=== PATIENT | female | born 1950 | race American Indian/Alaskan Native ===

== ENCOUNTER 2020-08-13 14:27 | Outpatient (CLI) | payer MEDICARE ==
--- NOTE | 2020-08-13 17:06 | Mammography Report ---
PERCUTANEOUS STEREOTACTIC-GUIDED LEFT BREAST BIOPSY WITH MARKER PLACEMENT HISTORY: Left breast calcifications. CONSENT: Technique, risks and alternatives were discussed with the patient and informed written conse nt obtained. PROCEDURE: The patient was placed in the prone position on the Siemens biopsy table. The calcifications in the l eft breast at the 11:00 position were identified. Churner and stereo pair images were acquired to gener ate the computer-derived coordinates for targeting. The skin overlying the chosen biopsy site was jessica ansed with Betadine. The skin and superficial soft tissues were anesthetized with a small amount of buffered 1% lidocaine. The deeper soft tissues were anesthetized with buffered 1% lidocaine with epi nephrine. A small dermatotomy was created through which the Atec biopsy device was placed. Pre and post fire st ereo pair images were acquired to confirm appropriate needle trajectory. Using vacuum assistance, mul tiple core specimen samples were acquired. A post procedure stereo pair image suggested adequate samp ling of the target. A post procedure specimen radiograph confirmed calcifications within core specime n samples. A biopsy marker was deposited at the biopsy site, and appropriate biopsy marker depositio n confirmed via a stereo pair image. Manual pressure was applied at the biopsy site to achieve hemostasis. The incision margins were appro ximated with Steri-Strips. Postprocedure care instructions were administered in both verbal and writt en forms. The patient voiced understanding and departed the [facility] in stable, satisfactory con dition. IMPRESSION Technically successful percutaneous stereotactic-guided biopsy of left breast calcifications at the 1 1:00 position. An addendum will be added to this report once pathology results are available. Signer Name: Tomasz Vicente MD Signed: 08/13/2020 5:01 PM Workstation Name: [id number]
--- NOTE | 2020-08-14 10:31 | Mammography Report ---
DIGITAL DIAGNOSTIC MAMMOGRAM, -- 08/14/2020 INDICATION: Post left breast biopsy of suspicious calcifications. TECHNIQUE: Digital left mammographic imaging was performed. COMPARISON: 07/25/2020 FINDINGS: Breast Density: The breasts are heterogeneously dense, which may obscure small masses. Expected postbiopsy change is seen at the site of the previously described suspicious left breast chong cifications with concordant clip placement. No other significant changes are identified. IMPRESSION: Concordant left breast biopsy clip placement. Please correlate with the pathology report. Recommended Follow-Up: Clinical exam Post biopsy imaging. A "normal" or negative report should not discourage follow up or biopsy of a clinically significant f inding. A written summary of these findings will be mailed to the patient. The patient will be entered into a mammography reporting system which will generate a reminder letter for the patient's next appointmen t at the appropriate interval. According to the [employer], yearly mammograms are recommended starting at age 40 and continuing as long as a woman is in good health. Breast MRI is recommended for women with an prateek roximately 20-25% or greater lifetime risk of breast cancer, including women with a strong family his tory of breast or ovarian cancer and women who have been treated for Hodgkin's disease. Signer Name: Lorenzo Allen MD Signed: 08/14/2020 10:26 AM Workstation Name: [email or web address]
== END 2020-08-13 14:28 | disposition home or self-care (01) ==
LOC: SPVWC 14:27
PROVIDERS: ATTEND Surgery
DX: R92.1 Mammographic calcification found on diagnostic imaging of breast (principal); R92.8 Other abnormal and inconclusive findings on diagnostic imaging of breast; D24.2 Benign neoplasm of left breast; R92.0 Mammographic microcalcification found on diagnostic imaging of breast
CPT/HCPCS: 19081; 77065; 88305; A4648

== ENCOUNTER 2021-02-16 09:19 | Outpatient (CLI) | payer MEDICARE ==
--- NOTE | 2021-02-16 10:14 | Mammography Report ---
DIGITAL DIAGNOSTIC MAMMOGRAM WITH CAD CONVENTIONAL, 02/16/2021 CLINICAL INFORMATION / INDICATION: Six-month follow-up after left breast biopsy. TECHNIQUE: Digital left mammographic imaging was performed. This examination was interpreted with the benefit of Computer-aided Detection analysis. COMPARISON: 08/13/2020, 07/25/2020. FINDINGS: Breast Density: The breast is heterogeneously dense, which may obscure small masses. No dominant mass, suspicious calcifications or architectural distortion in the left breast. Expected postbiopsy change with clip placement is noted in the 11:00 position. Generalized benign appearing ca lcifications in the left breast are unchanged. IMPRESSION: No mammographic evidence of malignancy. Follow up recommendation: Back to schedule. BI-RADS Category 2: Benign. A "normal" or negative report should not discourage follow up or biopsy of a clinically significant f inding. A written summary of these findings will be mailed to the patient. The patient will be entered into a mammography reporting system which will generate a reminder letter for the patient's next appointmen t at the appropriate interval. According to the [employer], yearly mammograms are recommended starting at age 40 and continuing as long as a woman is in good health. Breast MRI is recommended for women with an prateek roximately 20-25% or greater lifetime risk of breast cancer, including women with a strong family his tory of breast or ovarian cancer and women who have been treated for Hodgkin's disease. Signer Name: Lorenzo Allen MD Signed: 02/16/2021 10:10 AM Workstation Name: [id number]
== END 2021-02-16 09:20 | disposition home or self-care (01) ==
LOC: SPVWC 09:19
PROVIDERS: ATTEND Surgery
DX: R92.1 Mammographic calcification found on diagnostic imaging of breast (principal)

== ENCOUNTER 2021-08-10 12:04 | Outpatient (CLI) | payer MEDICARE ==
--- NOTE | 2021-08-10 14:13 | Mammography Report ---
DIGITAL SCREENING MAMMOGRAM WITH CAD, 08/10/2021 CLINICAL INFORMATION / INDICATION: Routine screening mammography. SCREENING MAMMO Z12.31 TECHNIQUE: Digital bilateral 2D mammography was obtained in the craniocaudal and mediolateral obliqu e projections. This examination was interpreted with the benefit of Computer-Aided Detection analysis . COMPARISON: 07/06/2017 through 02/16/2021. FINDINGS: Breast Density: The breasts are heterogeneously dense, which may obscure small masses. No dominant mass, suspicious calcifications, or architectural distortion in the right breast. Left breast calcifications are stable. There are 2 left biopsy clips. No new abnormality is seen. IMPRESSION: No mammographic evidence of malignancy. Follow up recommendation: Routine yearly BI-RADS Category 2: Benign. A "normal" or negative report should not discourage follow up or biopsy of a clinically significant f inding. A written summary of these findings will be mailed to the patient. The patient will be entered into a mammography reporting system which will generate a reminder letter for the patient's next appointmen t at the appropriate interval. The [employer] recommends yearly mammograms starting at age 40 and continuing as l kia as a woman is in good health. Breast MRI is recommended for women with an approximate 20-25% or greater lifetime risk of breast cancer, including women with a strong family history of breast or ova dax cancer or who have been treated for Hodgkin's disease. Signer Name: Colin Mckinney MD Signed: 08/10/2021 2:09 PM Workstation Name: [id number]
== END 2021-08-10 12:05 | disposition home or self-care (01) ==
LOC: SPVWC 12:04
PROVIDERS: ATTEND Surgery
DX: Z12.31 Encounter for screening mammogram for malignant neoplasm of breast (principal); N64.89 Other specified disorders of breast
CPT/HCPCS: 77067

== ENCOUNTER 2022-08-11 10:27 | Outpatient (CLI) | payer MEDICARE ==
--- NOTE | 2022-08-13 11:09 | Mammography Report ---
DIGITAL SCREENING MAMMOGRAM WITH CAD, 08/11/2022 CLINICAL INFORMATION / INDICATION: Routine screening mammography. TECHNIQUE: Digital bilateral 2D mammography was obtained in the craniocaudal and mediolateral oblique projections. This examination was interpreted with the benefit of Computer-Aided Detection analysis. COMPARISON: 07/06/2017 through 08/10/2021. FINDINGS: Breast Density: The breasts are heterogeneously dense, which may obscure small masses. No dominant mass, suspicious calcifications, or architectural distortion in either breast. Left breast scar is present. There are 2 left biopsy clips. Benign-appearing left breast calcificatio ns are again identified. Mild benign-appearing nodularity in the right breast has not changed signifi cantly. No new abnormality is seen. IMPRESSION: No mammographic evidence of malignancy. Follow up recommendation: Routine yearly screening mammogram. BI-RADS Category 2: BENIGN. A "normal" or negative report should not discourage follow up or biopsy of a clinically significant f inding. A written summary of these findings will be mailed to the patient. The patient will be entered into a mammography reporting system which will generate a reminder letter for the patient's next appointmen t at the appropriate interval. The [employer] recommends yearly mammograms starting at age 40 and continuing as l kia as a woman is in good health. Breast MRI is recommended for women with an approximate 20-25% or greater lifetime risk of breast cancer, including women with a strong family history of breast or ova dax cancer or who have been treated for Hodgkin's disease. Signer Name: Colin Mckinney MD Signed: 08/13/2022 11:05 AM Workstation Name: [id number]
== END 2022-08-11 10:28 | disposition home or self-care (01) ==
LOC: SPVWC 10:27
PROVIDERS: ATTEND Pediatrics
DX: Z12.31 Encounter for screening mammogram for malignant neoplasm of breast (principal)
CPT/HCPCS: 77067